=== PATIENT | male | born 1965 | race Caucasian/White ===

== ENCOUNTER 2021-01-14 23:58 | Emergency (ER) | payer SELFPAY ==
[~2021-01-14] VITALS: Ht 177.8 cm; Wt 136.1 kg
[2021-01-15] VITALS: BP_SYST 155
[2021-01-15 01:05] VITALS: BP_SYST 146
== END 2021-01-15 01:05 | disposition home or self-care (01) ==
LOC: SED 23:58
DX: F10.129 Alcohol abuse with intoxication, unspecified (principal); Y90.9 Presence of alcohol in blood, level not specified
CPT/HCPCS: 99283